=== PATIENT | female | born 1960 | race Caucasian/White ===

== ENCOUNTER 2019-07-14 15:08 | Inpatient (IN) | payer OTHER ==
[~2019-07-14] VITALS: Ht 175.3 cm; Wt 79.9 kg
[2019-07-14] MEDS ORDERED: SODIUM CHLORIDE FLUSH 10ML SYR IVF ONE (18:00)
[2019-07-14] MEDS ORDERED: MORPHINE SULFATE 4 MG/ML, 1ML ONE ×2 (18:26→19:16)
[2019-07-14] MEDS: MORPHINE SULFATE 4 MG/ML, 1ML IVPush PRN ×2 (18:30→19:17)
--- NOTE | 2019-07-14 18:32 | NUR ---
IV PLACED, BC X 1 DRAWN WITH START. MORPHINE GIVEN FOR 10/10 PAIN TO L FINGER.
[2019-07-14 18:37] LABS: BASOPHILS # (AUTO) 0.07 x10^3/uL (0-0.1); BASOPHILS % (AUTO) 1 % (0-1); EOSINOPHILS % (AUTO) 2 % (1-7); LYMPHOCYTES # (AUTO) 1.66 x10^3/uL (1-3.4); LYMPHOCYTES % (AUTO) 15 % (22-44); MD NO; MEAN CORPUSCULAR HEMOGLOBIN 30.5 pg (27.0-34.8); MEAN CORPUSCULAR HGB CONC 33.6 g/dL (32.4-35.8); MEAN CORPUSCULAR VOLUME 90.7 fL (80-100); MEAN PLATELET VOLUME 8.2 fL (7.4-10.4); MONOCYTES # (AUTO) 1.14 x10^3/uL (0.2-0.8); MONOCYTES % (AUTO) 10 % (2-9); NEUTROPHILS # (AUTO) 8.23 x10^3/uL (1.8-6.8); NEUTROPHILS % (AUTO) 73 % (42-75); PLATELET COUNT 258 x10^3/uL (130-400); RED BLOOD COUNT 4.73 x10^6/uL (3.82-5.3); RED CELL DISTRIBUTION WIDTH 13.9 % (9.6-15.2)
[2019-07-14 18:47] LABS: ALBUMIN 3.9 g/dL (3.4-5.0); ANION GAP 7 mmol/L (5-15); CALCIUM 8.7 mg/dL (8.5-10.1); CHLORIDE 109 mmol/L (98-107); CREATININE 0.89 mg/dL (0.55-1.02)
[2019-07-14] MEDS ORDERED: VANCOMYCIN 1,500 MG in SODIUM CHLORIDE 0.9% 250 ML IV ONE (19:00)
[2019-07-14] MEDS ORDERED: VANCOMYCIN PER PHARMACY MC ONE (19:00)
[2019-07-14] MEDS ORDERED: VANCOMYCIN PER PHARMACY MC PRN (19:00)
[2019-07-14] MEDS ORDERED: AMPICILLIN/SULBACTAM 3 GM in SODIUM CHLORIDE 0.9% 100 ML IV ONE (19:00)
--- NOTE | 2019-07-14 19:23 | NUR ---
UNASYN INFUSING, BC X 2 DRAWN PRIOR. PT REMEDICATED FOR UNRELIEVED PAIN, RATED 10/10 STILL. VSS/UPDATED IN COMPUTER. PULSE OX AND BP CUFF IN PLACE.
[2019-07-14] MEDS ORDERED: FENTANYL PF 100 MCG/2ML ONE ×2 (19:46→21:08)
[2019-07-14] MEDS ORDERED: PROMETHAZINE 25 MG/ML, 1ML IV PRN (20:00)
[2019-07-14] MEDS ORDERED: HALOPERIDOL 5 MG/ML IV PRN (20:00)
[2019-07-14] MEDS ORDERED: HYDROmorphone 2 MG/ML, 1ML IVPush PRN (20:00)
[2019-07-14] MEDS ORDERED: hydrALAzine 20 MG/ML, 1ML IV PRN (20:00)
[2019-07-14] MEDS ORDERED: MEPERIDINE/PF 25MG/ML,1ML IVPush PRN (20:00)
[2019-07-14] MEDS ORDERED: LABETALOL 5 MG/ML SYR. (IV ONLY) IV PRN (20:00)
[2019-07-14] MEDS ORDERED: FENTANYL PF 100 MCG/2ML IV PRN (20:00)
[2019-07-14] MEDS ORDERED: OXYcodone 5 MG/5 ML ORAL.SOL UDC PO PRN (20:00)
[2019-07-14] MEDS ORDERED: LIDOCAINE 1%, 20ML ONE (20:25)
[2019-07-14] MEDS ORDERED: LIDOCAINE 1%, 20ML INFIL ONE (20:41)
[2019-07-14] MEDS ORDERED: NEOSTIGMINE 1 MG/ML, 10ML ONE (20:53)
[2019-07-14] MEDS ORDERED: PROPOFOL 10 MG/ML, 20ML ONE (20:53)
[2019-07-14] MEDS ORDERED: SUCCINYLCHOLINE 20 MG/ML, 10ML ONE (20:53)
[2019-07-14] MEDS ORDERED: ONDANSETRON 2MG/ML, 2ML ONE (20:53)
[2019-07-14] MEDS ORDERED: CEFAZOLIN 1,000 MG ONE (20:53)
[2019-07-14] MEDS ORDERED: DEXAMETHASONE 4 MG/ML, 1ML ONE (20:53)
[2019-07-14] MEDS ORDERED: ROCURONIUM 10MG/ML,5ML ONE (20:53)
[2019-07-14] MEDS ORDERED: GLYCOPYRROLATE 0.2MG/1ML, 5ML ONE (20:53)
[2019-07-14] MEDS ORDERED: HYDROmorphone 1 MG/ML, 1ML VIAL ONE (21:08)
[2019-07-14] MEDS ORDERED: PROMETHAZINE 25 MG/ML, 1ML ONE (21:15)
[2019-07-15 00:55] VITALS: BP 121/74
[2019-07-15] MEDS ORDERED: ONDANSETRON 2MG/ML, 2ML IVPush PRN (02:00)
[2019-07-15] MEDS ORDERED: VANCOMYCIN PER PHARMACY MC PRN (02:00)
[2019-07-15] MEDS ORDERED: ACETAMINOPHEN 325 MG TABLET PO PRN (02:00)
[2019-07-15] MEDS ORDERED: morphine SULFATE 10 MG/ML, 1ML IVPush PRN (02:00)
[2019-07-15] MEDS ORDERED: PHARMACOKINETIC MONITORING MC PRN (02:30)
[2019-07-15] MEDS: AMPICILLIN/SULBACTAM 3 GM in SODIUM CHLORIDE 0.9% 100 ML IV SCH ×4 (02:54→19:35)
[2019-07-15 04:49] VITALS: BP 108/64
[2019-07-15 05:27] VITALS: BP 134/78
[2019-07-15 07:54] LABS: BASOPHILS # (AUTO) 0.01 x10^3/uL (0-0.1); BASOPHILS % (AUTO) 0 % (0-1); EOSINOPHILS % (AUTO) 0 % (1-7); LYMPHOCYTES # (AUTO) 0.62 x10^3/uL (1-3.4); LYMPHOCYTES % (AUTO) 6 % (22-44); MD NO; MEAN CORPUSCULAR HGB CONC 33.4 g/dL (32.4-35.8); MEAN CORPUSCULAR VOLUME 89.7 fL (80-100); MEAN PLATELET VOLUME 7.8 fL (7.4-10.4); MONOCYTES # (AUTO) 0.29 x10^3/uL (0.2-0.8); MONOCYTES % (AUTO) 3 % (2-9); NEUTROPHILS # (AUTO) 10.39 x10^3/uL (1.8-6.8); NEUTROPHILS % (AUTO) 92 % (42-75); PLATELET COUNT 230 x10^3/uL (130-400); RED BLOOD COUNT 4.28 x10^6/uL (3.82-5.3); RED CELL DISTRIBUTION WIDTH 13.8 % (9.6-15.2)
[2019-07-15] MEDS: SENNA/DOCUSATE TABLET PO SCH (08:12)
[2019-07-15 09:06] VITALS: BP 119/71
[2019-07-15 13:23] VITALS: BP 118/66
[2019-07-15] MEDS: VANCOMYCIN 1,600 MG in SODIUM CHLORIDE 0.9% 250 ML IV SCH (14:59)
[2019-07-15] MEDS: KETOROLAC 30 MG/1 ML IV PRN (17:45)
[2019-07-15 18:43] VITALS: BP 115/64
[2019-07-16 01:48] VITALS: BP 115/75
[2019-07-16] MEDS: AMPICILLIN/SULBACTAM 3 GM in SODIUM CHLORIDE 0.9% 100 ML IV SCH ×2 (03:21→11:33)
[2019-07-16 05:36] LABS: CHLORIDE 110 mmol/L (98-107)
[2019-07-16 05:49] LABS: BASOPHILS # (AUTO) 0.04 x10^3/uL (0-0.1); BASOPHILS % (AUTO) 1 % (0-1); EOSINOPHILS % (AUTO) 2 % (1-7); LYMPHOCYTES # (AUTO) 1.86 x10^3/uL (1-3.4); LYMPHOCYTES % (AUTO) 28 % (22-44); MD NO; MEAN CORPUSCULAR HEMOGLOBIN 30.3 pg (27.0-34.8); MEAN CORPUSCULAR HGB CONC 33.1 g/dL (32.4-35.8); MEAN CORPUSCULAR VOLUME 91.5 fL (80-100); MEAN PLATELET VOLUME 8.3 fL (7.4-10.4); MONOCYTES # (AUTO) 0.62 x10^3/uL (0.2-0.8); MONOCYTES % (AUTO) 9 % (2-9); NEUTROPHILS # (AUTO) 4.02 x10^3/uL (1.8-6.8); NEUTROPHILS % (AUTO) 61 % (42-75); PLATELET COUNT 217 x10^3/uL (130-400); RED BLOOD COUNT 4.13 x10^6/uL (3.82-5.3); RED CELL DISTRIBUTION WIDTH 13.7 % (9.6-15.2)
[2019-07-16 05:51] LABS: ALANINE AMINOTRANSFERASE 24 U/L (12-78); ALBUMIN 2.9 g/dL (3.4-5.0); ALKALINE PHOSPHATASE 54 U/L (45-117); BILIRUBIN,TOTAL 0.5 mg/dL (0.2-1.0); CALCIUM 8.1 mg/dL (8.5-10.1); CREATININE 0.81 mg/dL (0.55-1.02); TOTAL PROTEIN 5.8 g/dL (6.4-8.2)
[2019-07-16 05:53] LABS: ANION GAP 5 mmol/L (5-15)
[2019-07-16 06:02] LABS: HCT (SEDRATE) 37.8 % (34.6-47.8)
[2019-07-16 07:20] VITALS: BP 151/83
[2019-07-16] MEDS: VANCOMYCIN 1,600 MG in SODIUM CHLORIDE 0.9% 250 ML IV SCH (08:13)
[2019-07-16] MEDS: LACTOBACILLUS CHEW TABLET PO SCH ×3 (08:14→19:36)
[2019-07-16] MEDS: SENNA/DOCUSATE TABLET PO SCH (08:15)
[2019-07-16 12:40] VITALS: BP 137/80
[2019-07-16] MEDS: ERTAPENEM 1 GM in SODIUM CHLORIDE 0.9% 50 ML IV SCH (14:48)
[2019-07-16 18:40] VITALS: BP 147/77
[2019-07-16] MEDS: KETOROLAC 30 MG/1 ML IV PRN (19:36)
[2019-07-17 03:22] VITALS: BP 131/77
[2019-07-17 06:53] VITALS: BP 155/81
[2019-07-17] MEDS: SENNA/DOCUSATE TABLET PO SCH (08:39)
[2019-07-17] MEDS: LACTOBACILLUS CHEW TABLET PO SCH ×3 (08:39→20:49)
[2019-07-17 11:22] VITALS: BP 189/98
[2019-07-17] MEDS: ERTAPENEM 1 GM in SODIUM CHLORIDE 0.9% 50 ML IV SCH (12:08)
[2019-07-17 13:19] VITALS: BP 170/85
[2019-07-17] MEDS: KETOROLAC 30 MG/1 ML IV PRN (14:16)
[2019-07-17 15:20] VITALS: BP 157/83
[2019-07-17] MEDS ORDERED: hydrALAzine 20 MG/ML, 1ML IV PRN (15:30)
[2019-07-17 19:16] VITALS: BP 159/88
[2019-07-18 02:13] VITALS: BP 159/87
[2019-07-18] MEDS: KETOROLAC 30 MG/1 ML IV PRN ×2 (03:25→13:31)
[2019-07-18] MEDS ORDERED: LISINOPRIL 10 MG TABLET PO SCH (09:00)
[2019-07-18 09:37] VITALS: BP 168/98
[2019-07-18] MEDS: LACTOBACILLUS CHEW TABLET PO SCH ×2 (10:31→18:24)
[2019-07-18] MEDS: SENNA/DOCUSATE TABLET PO SCH (10:34)
[2019-07-18] MEDS: ERTAPENEM 1 GM in SODIUM CHLORIDE 0.9% 50 ML IV SCH (12:36)
[2019-07-18 15:06] VITALS: BP 171/85
[2019-07-18] MEDS ORDERED: LISI-167 PO (15:32)
[2019-07-18] MEDS ORDERED: ERTA1VIA4 IV (15:35)
[2019-07-18 18:21] VITALS: BP 182/109
== END 2019-07-18 20:23 | disposition home or self-care (01) | DRG 558 ==
LOC: ED 19:37 → EDIP 19:46 → 4NE 22:14 → 3N 07-17 11:15
PROVIDERS: ADMIT Family Medicine; ATTEND Internal Medicine
PROC: 0X9K0ZZ Drainage of Left Hand, Open Approach (ICD-10-PCS; principal; 2019-07-14 07:00)
PROC: 02HV33Z Insertion of Infusion Device into Superior Vena Cava, Percutaneous Approach (ICD-10-PCS; 2019-07-16)
PROC: B548ZZA Ultrasonography of Superior Vena Cava, Guidance (ICD-10-PCS; 2019-07-16)
DX: M65.142 Other infective (teno)synovitis, left hand (principal); L02.512 Cutaneous abscess of left hand; B95.61 Methicillin susceptible Staphylococcus aureus infection as the cause of diseases classified elsewhere; I10 Essential (primary) hypertension; K58.9 Irritable bowel syndrome, unspecified; L03.012 Cellulitis of left finger; D72.829 Elevated white blood cell count, unspecified; Z86.74 Personal history of sudden cardiac arrest; Z80.1 Family history of malignant neoplasm of trachea, bronchus and lung; Z88.2 Allergy status to sulfonamides
CPT/HCPCS: 36415; 36573; 80048; 80053; 82040; 83605; 84443; 85025; 85651; 86140; 87040; 87070; 87075; 87077; 87147; 87186; 87205; 93306; 96365; 96375; 96376; G0378; J0295; J0690; J1100; J1170; J1335; J1885; J2405; J2550; J2704; J2710; J3010; J3370; C1751; J0330; J0360; J2270; J7050

== ENCOUNTER 2019-11-21 19:35 | Emergency (ER) | payer OTHER ==
[~2019-11-21] VITALS: Ht 175.3 cm; Wt 74.5 kg
[~2019-11-21 19:35] MED LIST: ERTA1VIA4 IV; LISI-167 PO
[2019-11-21 19:42] VITALS: BP 167/91
[2019-11-21] MEDS ORDERED: LIDOCAINE 1%-EPI 1:100K, 20ML ONE (20:21)
[2019-11-21] MEDS ORDERED: BUPIVACAINE/PF-EPI 0.25% 1:200K INFIL ONE (20:30)
--- NOTE | 2019-11-21 21:36 | NUR ---
PT GIVEN WATER. WAITING FOR SUTURES. WOUND HAS BEEN IRRIGATED.
--- NOTE | 2019-11-21 22:04 | NUR ---
REPORT RECEIVED FROM DARRELL WAYNE.
--- NOTE | 2019-11-21 22:10 | NUR ---
ERP IN ROOM AT THIS TIME.
[2019-11-21] MEDS ORDERED: NEOSPORIN OINT. PKT 1 PACKET ONE (22:34)
== END 2019-11-21 23:16 | disposition home or self-care (01) ==
LOC: EDSEX 19:35 → ED 23:00
DX: S81.811A Laceration without foreign body, right lower leg, initial encounter (principal); W18.09XA Striking against other object with subsequent fall, initial encounter; Y93.89 Activity, other specified; Y92.488 Other paved roadways as the place of occurrence of the external cause; Y99.8 Other external cause status
CPT/HCPCS: 12034; 99285